=== PATIENT | male | born 1945 | race Caucasian/White ===

== ENCOUNTER 2023-04-28 06:15 | Day surgery (SDC) | payer MEDICARE, BC ==
[~2023-04-28 06:15] MED LIST: Sodium Chloride 0.9% 10 ML Syringe FLUSH PRN
[2023-04-28] MEDS ORDERED: Glycopyrrolate 0.2 MG/ML 5 ML MDV IV ONE (06:16)
[2023-04-28] MEDS ORDERED: Propofol 200 MG/20 ML SDV IV ONE (06:16)
[2023-04-28] MEDS: Lactated Ringers 1,000 ML IV SCH (07:10)
[2023-04-28] MEDS: Simethicone Drops 40 MG/0.6 ML 30 ML Bottle ONE (07:38)
[2023-04-28 11:17] VITALS: BP 126/88; PULSE 97
== END 2023-04-28 08:58 | disposition home or self-care (01) ==
LOC: FB.SDS 06:15
PROVIDERS: ATTEND Surgery
DX: K63.5 Polyp of colon (principal); K57.30 Diverticulosis of large intestine without perforation or abscess without bleeding; K58.9 Irritable bowel syndrome, unspecified; I10 Essential (primary) hypertension; E78.5 Hyperlipidemia, unspecified; K21.9 Gastro-esophageal reflux disease without esophagitis; E66.9 Obesity, unspecified; Z68.32 Body mass index [BMI] 32.0-32.9, adult; Z87.891 Personal history of nicotine dependence; Z90.49 Acquired absence of other specified parts of digestive tract; Z98.890 Other specified postprocedural states
CPT/HCPCS: 00811; 88305; 99100; A9270-GY; J2704; J3490; J7120